=== PATIENT | male | born 1995 | race Caucasian/White ===

== ENCOUNTER → 2018-03-03 | Outpatient (REF) | payer BC | LOC: M SFHCLERA 20:30 | DX: J02.9 Acute pharyngitis, unspecified (principal) ==

== ENCOUNTER 2019-04-29 14:27 | Emergency (ER) | payer BC, OTHER, SELFPAY ==
[~2019-04-29] VITALS: Ht 182.9 cm; Wt 100.0 kg
[2019-04-29 14:29] VITALS: BP 148/89
[2019-04-29] MEDS ORDERED: FLUORESCEIN OPHTH 1 MG STRIP XX ONE (14:45)
[2019-04-29] MEDS ORDERED: PROPARACAINE 0.5% OPHTH SOL 15ML XX ONE (14:45)
[2019-04-29] MEDS ORDERED: TETRACAINE 0.5% OPHTH SOLN 4ML OU ONE (15:15)
[2019-04-29] MEDS ORDERED: VIGA0.02 OS (16:02)
[2019-04-29] MEDS ORDERED: POLYSOL OS (16:02)
== END 2019-04-29 16:18 | disposition home or self-care (01) ==
LOC: M ED 14:27
DX: S05.02XA Injury of conjunctiva and corneal abrasion without foreign body, left eye, initial encounter (principal); W22.8XXA Striking against or struck by other objects, initial encounter; Y92.89 Other specified places as the place of occurrence of the external cause; Y99.0 Civilian activity done for income or pay

== ENCOUNTER 2019-05-01 08:52 | Emergency (ER) | payer OTHER, BC ==
[~2019-05-01] VITALS: Ht 182.9 cm; Wt 95.5 kg
[2019-05-01 08:52] VITALS: BP 157/78
[~2019-05-01 08:52] MED LIST: POLYSOL OS; VIGA0.02 OS
[2019-05-01] MEDS ORDERED: FLUORESCEIN OPHTH 1 MG STRIP OS ONE (09:30)
[2019-05-01] MEDS ORDERED: TETRACAINE 0.5% OPHTH SOLN 4ML OS ONE (09:30)
[2019-05-01] MEDS ORDERED: ZYLE0.5S OP (09:38)
== END 2019-05-01 10:00 | disposition home or self-care (01) ==
LOC: M ED 08:52
DX: S05.02XA Injury of conjunctiva and corneal abrasion without foreign body, left eye, initial encounter (principal); W22.8XXA Striking against or struck by other objects, initial encounter; Y92.89 Other specified places as the place of occurrence of the external cause; Y93.9 Activity, unspecified; Y99.0 Civilian activity done for income or pay

== ENCOUNTER 2019-05-05 09:03 | Emergency (ER) | payer OTHER, BC ==
[~2019-05-05] VITALS: Ht 182.9 cm; Wt 98.0 kg
[~2019-05-05 09:03] MED LIST changes: +ZYLE0.5S OP
[2019-05-05] MEDS ORDERED: TETRACAINE 0.5% OPHTH SOLN 4ML OS ONE (09:45)
[2019-05-05] MEDS ORDERED: FLUORESCEIN OPHTH 1 MG STRIP OS ONE (09:45)
[2019-05-05] MEDS ORDERED: TROPICAMIDE 1% OPHTH SOLN 2ML OS ONE (11:15)
[2019-05-05] MEDS ORDERED: PHENYLEPHRINE 2.5% OPHTH SOL 2ML OS ONE (11:15)
[2019-05-05 13:11] VITALS: BP 143/89
== END 2019-05-05 13:13 | disposition home or self-care (01) ==
LOC: M ED 09:03
DX: S05.02XA Injury of conjunctiva and corneal abrasion without foreign body, left eye, initial encounter (principal); W22.8XXA Striking against or struck by other objects, initial encounter; Y92.89 Other specified places as the place of occurrence of the external cause; Y93.9 Activity, unspecified; Y99.0 Civilian activity done for income or pay